=== PATIENT | male | born 2000 | race Caucasian/White ===

== ENCOUNTER → 2023-10-04 | Outpatient (CLI) | payer MEDICARE, OTHER, MEDICAID ==
[~2023-10-04] MED LIST: AMPH1CAP5 PO; ARIP1TAB PO; ASCO50TA PO; DESM0.2T22 PO; DITR5TAB PO; FERR1TAB8 PO; HALO1TAB PO; MELA5TAB36 PO; OXYB5TAB11 PO; TRAZ1TAB11 PO
[2023-10-04 17:21] LABS: BASO # 0.1 10^3/uL (0.0-0.2); BASO % 0.6 % (0.0-1.0); EOS # 0.3 10^3/uL (0.0-0.5); EOS % 3.4 % (0.0-3.0); HEMATOCRIT 41.3 % (42.0-52.0); HEMOGLOBIN 13.2 g/dl (13.5-17.5); LYMPH # 2.9 10^3/uL (1.5-5.0); LYMPH % 35.1 % (24.0-44.0); MEAN CORPUSCULAR HEMOGLOBIN 26.7 pg (27.0-33.0); MEAN CORPUSCULAR VOLUME 83.4 fl (80.0-96.0); MONO # 0.8 10^3/uL (0.0-0.8); MONO % 9.9 % (2.0-8.0); NEUTROPHILS # 4.2 10^3/uL (1.5-8.5); NEUTROPHILS % 50.8 % (36.0-66.0); PLATELET COUNT, AUTOMATED 397 10^3/uL (150-450); RED BLOOD COUNT 4.95 10^6/uL (4.30-6.10); WHITE BLOOD COUNT 8.3 10^3/uL (4.0-10.0)
[2023-10-04 17:49] LABS: THYROID STIMULATING HORMONE 2.492 uIU/ML (0.55-4.78)
[2023-10-04 17:50] LABS: CHOLESTEROL RISK RATIO 3.54 (<5); HDL CHOLESTEROL 31.9 MG/DL (>40); LDL CHOLESTEROL 52.1 MG/DL (<100); NON-HDL-C 81.1 MG/DL; PERCENT SATURATION 5.8 % (19.7-50.0)
[2023-10-04 17:51] LABS: FREE T4 1.02 NG/DL (0.89-1.76)
[2023-10-04 18:04] LABS: HEMOGLOBIN A1c 5.6 % (4.0-6.0)
== END ==
LOC: M WUC 12:30
PROVIDERS: ATTEND Nurse Practitioner Family
DX: D50.9 Iron deficiency anemia, unspecified (principal); Z13.220 Encounter for screening for lipoid disorders; Z13.1 Encounter for screening for diabetes mellitus; F91.3 Oppositional defiant disorder; Z79.899 Other long term (current) drug therapy

== ENCOUNTER → 2023-10-30 | Outpatient (CLI) | payer MEDICARE, OTHER, MEDICAID ==
[~2023-10-30] MED LIST changes: -OXYB5TAB11 PO; +OXYB5TAB14 PO
== END ==
LOC: M WUC 11:54
PROVIDERS: ATTEND Nurse Practitioner Family
DX: R22.42 Localized swelling, mass and lump, left lower limb (principal)

== ENCOUNTER 2023-12-25 18:46 | Emergency (ER) | payer MEDICARE, MEDICAID ==
[2023-12-25 20:03] LABS: HEMOGLOBIN 11.6 g/dl (13.5-17.5); MEAN CORPUSCULAR HEMOGLOBIN 24.5 pg (27.0-33.0); MEAN CORPUSCULAR HGB CONC 31.4 g/dl (32.0-36.5); MEAN CORPUSCULAR VOLUME 78.1 fl (80.0-96.0); PLATELET COUNT, AUTOMATED 408 10^3/uL (150-450); RED BLOOD COUNT 4.74 10^6/uL (4.30-6.10); WHITE BLOOD COUNT 9.4 10^3/uL (4.0-10.0)
[2023-12-25 20:41] LABS: ETHYL ALCOHOL (ETHANOL) < 0.003 % (0.000-0.010)
[2023-12-25 20:43] LABS: ALBUMIN 3.3 G/DL (3.2-5.2); ALKALINE PHOSPHATASE 182 U/L (46-116); ALT/SGPT 14 U/L (7.0-40); AST/SGOT 17 U/L (<34); BILIRUBIN,DIRECT < 0.1 MG/DL (<0.4); BILIRUBIN,TOTAL < 0.2 MG/DL (0.3-1.2); BLOOD UREA NITROGEN 25 MG/DL (9-23); CALCIUM LEVEL 8.7 MG/DL (8.5-10.1); CARBON DIOXIDE LEVEL 27 MMOL/L (20-31); CHLORIDE LEVEL 107 MMOL/L (98-107); CREATININE FOR GFR 0.57 MG/DL (0.70-1.30); GLOMERULAR FILTRATION RATE > 60.0 (>60); GLUCOSE, FASTING 94 MG/DL (60-100); POTASSIUM SERUM 4.4 MMOL/L (3.5-5.1); SALICYLATE LEVEL < 3.0 MG/DL (<30); SODIUM LEVEL 144 MMOL/L (136-145); TOTAL PROTEIN 7.2 G/DL (5.7-8.2)
[2023-12-25 21:26] LABS: THYROID STIMULATING HORMONE 3.296 uIU/ML (0.55-4.78)
[2023-12-25 21:50] LABS: BARBITURATES URINE NEGATIVE (NEGATIVE); BENZODIAZEPINES URINE NEGATIVE (NEGATIVE)
[2023-12-25 21:51] LABS: CANNABINOIDS URINE NEGATIVE (NEGATIVE); COCAINE METABOLITE URINE NEGATIVE (NEGATIVE); METHADONE URINE NEGATIVE (NEGATIVE); OPIATES URINE NEGATIVE (NEGATIVE); PHENCYCLIDINE URINE NEGATIVE (NEGATIVE)
[2023-12-25 21:53] LABS: AMPHETAMINES LEVEL URINE POSITIVE (NEGATIVE)
[2023-12-26] MEDS: IBUPROFEN 600MG TAB PO ONE (06:48)
[2023-12-26 09:49] VITALS: BP 121/87; TEMP 97.7; O2SAT 100
== END 2023-12-26 10:25 | disposition home or self-care (01) ==
LOC: M ED 18:46
DX: F43.0 Acute stress reaction (principal); F91.3 Oppositional defiant disorder; F90.9 Attention-deficit hyperactivity disorder, unspecified type; F42.9 Obsessive-compulsive disorder, unspecified; Q86.0 Fetal alcohol syndrome (dysmorphic); Z79.899 Other long term (current) drug therapy

== ENCOUNTER 2023-12-26 18:49 | Inpatient (IN) | payer MEDICARE, MEDICAID ==
[~2023-12-26] VITALS: Ht 152.4 cm; Wt 55.0 kg
[2023-12-26 19:57] LABS: BASO # 0.1 10^3/uL (0.0-0.2); BASO % 0.5 % (0.0-1.0); EOS # 0.3 10^3/uL (0.0-0.5); EOS % 3.2 % (0.0-3.0); HEMATOCRIT 39.1 % (42.0-52.0); HEMOGLOBIN 12.3 g/dl (13.5-17.5); LYMPH # 3.4 10^3/uL (1.5-5.0); MEAN CORPUSCULAR HEMOGLOBIN 24.4 pg (27.0-33.0); MEAN CORPUSCULAR HGB CONC 31.5 g/dl (32.0-36.5); MEAN CORPUSCULAR VOLUME 77.6 fl (80.0-96.0); MONO # 1.2 10^3/uL (0.0-0.8); MONO % 10.8 % (2.0-8.0); NEUTROPHILS # 5.7 10^3/uL (1.5-8.5); NEUTROPHILS % 53.3 % (36.0-66.0); PLATELET COUNT, AUTOMATED 421 10^3/uL (150-450); RED BLOOD COUNT 5.04 10^6/uL (4.30-6.10); WHITE BLOOD COUNT 10.7 10^3/uL (4.0-10.0)
[2023-12-26 20:27] LABS: BARBITURATES URINE NEGATIVE (NEGATIVE); BENZODIAZEPINES URINE NEGATIVE (NEGATIVE); COCAINE METABOLITE URINE NEGATIVE (NEGATIVE); METHADONE URINE NEGATIVE (NEGATIVE); OPIATES URINE NEGATIVE (NEGATIVE)
[2023-12-26 20:28] LABS: CANNABINOIDS URINE NEGATIVE (NEGATIVE); PHENCYCLIDINE URINE NEGATIVE (NEGATIVE)
[2023-12-26 20:31] LABS: AMPHETAMINES LEVEL URINE POSITIVE (NEGATIVE)
[2023-12-26 20:37] LABS: ETHYL ALCOHOL (ETHANOL) < 0.003 % (0.000-0.010)
[2023-12-26 20:39] LABS: ALBUMIN 3.4 G/DL (3.2-5.2); ALKALINE PHOSPHATASE 190 U/L (46-116); ALT/SGPT 15 U/L (7.0-40); AST/SGOT 18 U/L (<34); BILIRUBIN,DIRECT < 0.1 MG/DL (<0.4); BILIRUBIN,TOTAL < 0.2 MG/DL (0.3-1.2); BLOOD UREA NITROGEN 20 MG/DL (9-23); CALCIUM LEVEL 8.8 MG/DL (8.5-10.1); CARBON DIOXIDE LEVEL 26 MMOL/L (20-31); CHLORIDE LEVEL 108 MMOL/L (98-107); CREATININE FOR GFR 0.55 MG/DL (0.70-1.30); GLOMERULAR FILTRATION RATE > 60.0 (>60); GLUCOSE, FASTING 92 MG/DL (60-100); POTASSIUM SERUM 4.4 MMOL/L (3.5-5.1); SALICYLATE LEVEL < 3.0 MG/DL (<30); SODIUM LEVEL 143 MMOL/L (136-145); TOTAL PROTEIN 7.5 G/DL (5.7-8.2)
[2023-12-26 20:41] LABS: THYROID STIMULATING HORMONE 1.913 uIU/ML (0.55-4.78)
[2023-12-26] MEDS ORDERED: traZODone 50 MG TAB PO PRN (21:00)
[2023-12-26] MEDS ORDERED: OLANZapine ORAL DISINTEGRATING TAB 5MG PO PRN (21:00)
[2023-12-26] MEDS ORDERED: ACETAMINOPHEN TAB 650MG DOSE (2X325MG) PO PRN (21:00)
[2023-12-26] MEDS ORDERED: diphenhydrAMINE 25MG CAP PO PRN (21:00)
[2023-12-26] MEDS ORDERED: MOM 30ML SUSPENSION UDC PO PRN (21:00)
[2023-12-26] MEDS ORDERED: LORazepam 1 MG TAB PO PRN (21:00)
[2023-12-26] MEDS ORDERED: IBUPROFEN 400MG TAB PO PRN (21:00)
[2023-12-26] MEDS ORDERED: MAALOX 30 ML SUSP *UDC PO PRN (21:00)
[2023-12-26] MEDS ORDERED: HOME MED LIST COMPLETE! XX SCH (22:55)
[2023-12-26 23:07] VITALS: BP 103/66; TEMP 98.4; O2SAT 98
[2023-12-27] MEDS: oxyBUTYnin 5 MG TAB PO SCH (00:04)
[2023-12-27] MEDS: ARIPiprazole 10 MG TAB PO SCH (00:04)
[2023-12-27] MEDS: DESMOPRESSIN ACETATE 0.1 MG TAB PO SCH (00:05)
[2023-12-27 06:08] VITALS: BP 114/67; TEMP 97.4; O2SAT 98
[2023-12-27 15:31] VITALS: BP 127/68; TEMP 97.4; O2SAT 100
[2023-12-28 06:17] VITALS: BP 119/61; TEMP 97.4; O2SAT 99
[2023-12-28] MEDS: ASCORBIC ACID 500 MG TAB PO SCH (08:16)
[2023-12-28] MEDS: FERROUS SULFATE 325MG TAB PO SCH (08:17)
[2023-12-28] MEDS ORDERED: HALO1TAB PO (09:31)
[2023-12-28] MEDS ORDERED: HALO5TAB33 PO (09:31)
[2023-12-28] MEDS ORDERED: ARIP1TAB PO (09:31)
== END 2023-12-28 12:46 | disposition home or self-care (01) | DRG 883 ==
LOC: M ED 18:49 → M ED INP 21:00 → M PSY 22:45
PROVIDERS: ADMIT Student in an Organized Health Care Education/Training Program; ATTEND Student in an Organized Health Care Education/Training Program
DX: F63.81 Intermittent explosive disorder (principal); F72 Severe intellectual disabilities; F90.9 Attention-deficit hyperactivity disorder, unspecified type; F84.9 Pervasive developmental disorder, unspecified; F91.3 Oppositional defiant disorder; L74.0 Miliaria rubra; Z79.899 Other long term (current) drug therapy

== ENCOUNTER → 2024-10-30 | Outpatient (CLI) | payer MEDICARE, MEDICAID ==
[~2024-10-30] MED LIST changes: +HALO5TAB33 PO
== END ==
LOC: M PLAIMG 15:23
PROVIDERS: ATTEND Physician Assistant Medical
DX: M25.462 Effusion, left knee (principal); M25.562 Pain in left knee; Z87.81 Personal history of (healed) traumatic fracture

== ENCOUNTER → 2024-11-03 | Outpatient (CLI) | payer MEDICARE, MEDICAID | LOC: M SOG 08:33 | PROVIDERS: ATTEND Physician Assistant | DX: M25.562 Pain in left knee (principal); M25.462 Effusion, left knee ==

== ENCOUNTER → 2024-12-06 | Outpatient (CLI) | payer MEDICARE, MEDICAID | LOC: M RAD 10:53 | PROVIDERS: ATTEND Physician Assistant | DX: M25.462 Effusion, left knee (principal); M23.42 Loose body in knee, left knee; S80.02XA Contusion of left knee, initial encounter ==

== ENCOUNTER → 2024-12-22 | Outpatient (CLI) | payer MEDICARE, MEDICAID ==
[2024-12-22 17:51] LABS: BASO # 0.1 10^3/uL (0.0-0.2); BASO % 0.7 % (0.0-1.0); EOS # 0.3 10^3/uL (0.0-0.5); EOS % 2.6 % (0.0-3.0); HEMATOCRIT 42.5 % (42.0-52.0); HEMOGLOBIN 13.1 g/dl (13.5-17.5); LYMPH # 3.5 10^3/uL (1.5-5.0); LYMPH % 33.3 % (24.0-44.0); MEAN CORPUSCULAR HEMOGLOBIN 24.9 pg (27.0-33.0); MEAN CORPUSCULAR HGB CONC 30.8 g/dl (32.0-36.5); MEAN CORPUSCULAR VOLUME 80.8 fl (80.0-96.0); MONO % 9.4 % (2.0-8.0); NEUTROPHILS # 5.7 10^3/uL (1.5-8.5); NEUTROPHILS % 53.7 % (36.0-66.0); PLATELET COUNT, AUTOMATED 427 10^3/uL (150-450); RED BLOOD COUNT 5.26 10^6/uL (4.30-6.10); WHITE BLOOD COUNT 10.6 10^3/uL (4.0-10.0)
[2024-12-22 18:06] LABS: HEMOGLOBIN A1c 5.3 % (4.0-6.0)
[2024-12-22 18:26] LABS: IRON (FE) 14 UG/DL (65-175); PERCENT SATURATION 5.2 % (19.7-50.0); TOTAL IRON BINDING CAPACITY 268 UG/DL (250-425)
[2024-12-22 18:27] LABS: ALBUMIN 3.4 G/DL (3.2-5.2); ALKALINE PHOSPHATASE 157 U/L (40-129); ALT/SGPT 15 U/L (7.0-40); AST/SGOT 16 U/L (<34); BILIRUBIN,TOTAL 0.2 MG/DL (0.3-1.2); BLOOD UREA NITROGEN 10 MG/DL (9-23); CALCIUM LEVEL 8.9 MG/DL (8.5-10.1); CARBON DIOXIDE LEVEL 30 MMOL/L (20-31); CHLORIDE LEVEL 103 MMOL/L (98-107); CHOLESTEROL LEVEL 105 MG/DL (<200); CHOLESTEROL RISK RATIO 3.93 (<5); CREATININE FOR GFR 0.68 MG/DL (0.70-1.30); GLOMERULAR FILTRATION RATE > 90.0 (>60); GLUCOSE, FASTING 92 MG/DL (60-100); HDL CHOLESTEROL 26.7 MG/DL (>40); LDL CHOLESTEROL 48.1 MG/DL (<100); NON-HDL-C 78.3 MG/DL; POTASSIUM SERUM 4.2 MMOL/L (3.5-5.1); SODIUM LEVEL 140 MMOL/L (136-145); TOTAL PROTEIN 7.5 G/DL (5.7-8.2); TRIGLYCERIDES LEVEL 151 MG/DL (<150)
== END ==
LOC: M PLALAB 15:12
PROVIDERS: ATTEND Nurse Practitioner Family
DX: F91.3 Oppositional defiant disorder (principal); D50.9 Iron deficiency anemia, unspecified; R73.03 Prediabetes; Z13.220 Encounter for screening for lipoid disorders; Z79.899 Other long term (current) drug therapy